=== PATIENT | female | born 1960 | race Caucasian/White ===

== ENCOUNTER 2016-10-31 08:43 | Observation (INO) | payer OTHER ==
[~2016-10-31] VITALS: Ht 170.2 cm; Wt 66.3 kg
[~2016-10-31 08:43] MED LIST: ARNI20TI TOPICAL; BIOSIL PO; CLON1 PO; GABA600T PO; IBUP800T23 PO; LACTCAP8 PO; LAMI200T PO; MAGN250T10 PO; TRAZ300T2 PO; VITA500C9 CHEW; VITA50TA PO; VITATAB43 PO; [UNRECOGNIZED DRUG - OTHER]; [UNRECOGNIZED DRUG - OTHER] SL
[2016-10-31] MEDS: LACTATED RINGER'S 1000 ML IV SCH ×2 (09:30→16:33)
[2016-10-31] MEDS ORDERED: MULT1CAP16 PO (09:33)
[2016-10-31] MEDS ORDERED: BIOCTAB PO (09:33)
[2016-10-31 09:43] VITALS: BP 150/75; PULSE 71; RESP 18; TEMP 98; O2SAT 97
[2016-10-31] MEDS ORDERED: INSULIN HUMAN REGULAR 1,000 UNITS/10 ML VIAL SQ PRN (09:45)
[2016-10-31] MEDS: SODIUM CHLORID 0.9% 500 ML IV SCH (09:45)
[2016-10-31] MEDS ORDERED: ceFAZolin 2 GM PREMIX 50 ML IV SCH (09:45)
[2016-10-31] MEDS: CHLORHEXIDINE GLUCONATE 4% SOLN 120 ML BTL TOP SCH ×2 (09:45→10:55)
[2016-10-31] MEDS ORDERED: METOPROLOL TARTRATE 25 MG TAB PO PRN (09:45)
[2016-10-31] MEDS: VANCOMYCIN 1000 MG/NS 250 ML (for <70 kg) IV SCH ×4 (10:58→16:34)
[2016-10-31] MEDS ORDERED: GENTAMICIN SULFATE 80 MG/2 ML VIAL ONE (11:23)
[2016-10-31] MEDS ORDERED: FAMOTIDINE 20 MG/2 ML VIAL ONE (12:16)
[2016-10-31] MEDS ORDERED: ACETAMINOPHEN 1000 MG/100 ML VIAL IV ONE (12:16)
[2016-10-31] MEDS ORDERED: MIDAZOLAM HCL 2 MG/2 ML VIAL ONE ×2 (12:16→15:21)
[2016-10-31] MEDS ORDERED: SODIUM CHLORIDE 0.9% FLUSH 5 ML FLUSH IVF PRN (14:45)
[2016-10-31] MEDS ORDERED: ONDANSETRON HCL 4 MG/2 ML VIAL IVP PRN (14:45)
[2016-10-31] MEDS ORDERED: ACETAMINOPHEN/HYDROcodone 325 MG/10 MG TAB PO PRN (14:45)
[2016-10-31] MEDS ORDERED: diphenhydrAMINE HCL 25 MG CAP PO PRN (14:45)
[2016-10-31] MEDS ORDERED: MORPHINE SULFATE 4 MG/ML INJ IV PUSH PRN (14:45)
[2016-10-31] MEDS ORDERED: LACTOBACILLUS ACIDOPHILUS TAB PO PRN (14:45)
--- NOTE | 2016-10-31 14:47 | PD.OP ---
cc: Ash Perez MD Operative Report Date of Surgery: Oct 31, 2016 Preoperative Diagnosis: displaced right proximal humerus fracture Postoperative Diagnosis: Procedure: Open reduction internal fixation right proximal humerus Anesthesia: Gen. Surgeon: Ash Perez Waiter/Waitress Buffet(s): Reynaldo Norman PA-C The surgical procedure was assisted by my physician costumer assistant. My P.A. presence was necessary throughout this case for the manipulation and positioning of the surgical extremity. My P.A. was assisting me throughout the duration of this procedure. The skill set of a physician costumer assistant was medically necessary to complete this procedure. During the surgical case the rn medical surgical was working at the back table and the physician costumer assistant was directly assisting me. Operation and Findings: Patient was seen and evaluated preoperatively. Patient was found to have a displaced proximal humerus fracture. She initially declined surgical intervention and wished to proceed with nonoperative treatment. At her 2 week for clinical follow-up appointment, patient changed her mind and wish to proceed with surgical intervention. The risks and benefits of surgical and nonsurgical options were discussed in detail and informed consent was obtained for surgery. Patient was brought to the operating room and placed on or table. IV sedation and GETA were administered by anesthesiologist. Antibiotics were given prior to incision. Operative arm and shoulder were prepped with alcohol followed by Hibiclens and draped usual sterile fashion. Timeout procedure was performed. Procedure began with a 5 inch incision over the anterior shoulder. Cephalic vein was identified. A deltopectoral approach was utilized. The fracture was now visualized. Soft tissue was retracted. A #5 FiberWire suture was placed into the rotator rotator cuff and greater tuberosity. Attention was now turned to reduction. Gentle traction was applied. The humeral shaft was reduced to the humeral head. Fracture was manipulated to achieve excellent reduction. Multiplanar fluoroscopy confirmed well aligned fracture. Multiple K wires were used to hold provisional fixation. A Synthes proximal humerus plate was selected. Plate was provisionally held in place K wires. 3.5 cortical screws were used to compress plate to bone. Fluoroscopy confirmed appropriate plate placement and fracture reduction. Multiple locking screws were now placed in the humeral head. Screws were predrilled and premeasured for appropriate length. Care was taken not to penetrate the articular surface. Additional screws were placed in the humeral shaft. The FiberWire suture was passed through the holes of the plate and sutured to the plate for additional stability. Final fluoroscopy revealed well aligned fracture with well-placed hardware. Wound was thoroughly irrigated. Fascia was closed with #1 Vicryl, subcutaneous tissues closed with 3-0 Vicryl, and skin was closed with miguel. Sterile dressings were applied. Patient was placed into a sling. Patient was awakened and transferred to recovery in stable condition. Needle and sponge counts were correct. Ash Perez MD Oct 31, 2016 14:47
[2016-10-31] MEDS ORDERED: NEOSTIGMINE 3 MG/3 ML SYR IV ONE (14:53)
[2016-10-31] MEDS ORDERED: ePHEDrine/NS 25 MG/5 ML SYR IV ONE (14:53)
[2016-10-31] MEDS ORDERED: PROPOFOL 200 MG/20 ML AMP IV ONE (14:53)
[2016-10-31] MEDS ORDERED: ONDANSETRON HCL 4 MG/2 ML VIAL IV PUSH ONE (14:54)
[2016-10-31] MEDS ORDERED: LACTATED RINGER'S 1000 ML INJ 1,000 ML IV ONE (14:54)
[2016-10-31] MEDS ORDERED: DO NOT ADM ANY ANTICOAGULANT DRUGS XX PRN ×2 (15:14→16:00)
[2016-10-31] MEDS ORDERED: *MEPERIDINE 25 MG INJ VIAL PERIprocedural Use ONLY ONE (15:17)
[2016-10-31] MEDS ORDERED: *morphine SULFATE 8 MG/ML PERIprocedure ONLY ONE ×3 (15:20→15:36)
[2016-10-31] MEDS ORDERED: fentaNYL CITRATE 250 MCG/5 ML AMP ONE (15:21)
[2016-10-31] MEDS ORDERED: MORPHINE SULFATE 4 MG/ML INJ ONE (15:21)
[2016-10-31] MEDS ORDERED: *HYDROmorphone PF 1 MG VIAL PERIprocedural Use ONLY ONE (15:47)
[2016-10-31] MEDS ORDERED: DIMETHICONE/OXYBENZONE/PADMIATE LIP BALM 4.25 GM ONE (16:06)
--- NOTE | 2016-10-31 16:09 | RADRPT ---
EXAM DATE/TIME: 10/31/2016 14:30 [facility] COMPARISON: No previous studies available for comparison. INDICATIONS : ORIF right proximal humerus. MEDICAL HISTORY : None. SURGICAL HISTORY : None. ENCOUNTER: Initial ACUITY: 1 day PAIN SCORE: Non-responsive. LOCATION: Right proximal humerus. FINDINGS: Multiple coned down views of the right shoulder were obtained intraoperatively using a matrix camera and demonstrate a screw plate fixation device transfixing the proximal humeral fracture. The fracture fragments are in near-anatomic alignment. There is a normal glenohumeral relationship. CONCLUSION: Status post open rigid internal fixation. Nando Tsai MD on October 31, 2016 at 16:07 Board Certified Radiologist. This report was verified electronically.
[2016-10-31] MEDS: GABAPENTIN 300 MG CAP PO SCH (17:00)
[2016-10-31] MEDS: clonazePAM 1 MG TAB PO SCH (17:00)
--- NOTE | 2016-10-31 17:36 | EKG ---
Date Performed: 10/31/2016 Time Performed: 09:29:42 PTAGE: 56 years EKG: Sinus rhythm NORMAL ECG NO PREVIOUS TRACING DOCTOR: Tomas Toro Interpretating Date/Time 10/31/2016 17:35:23
[2016-10-31] MEDS: KETOROLAC TROMETHAMINE 30 MG/ML (IVP) VIAL IV PUSH SCH (17:37)
[2016-10-31] MEDS ORDERED: ASCORBIC ACID 500 MG TAB PO SCH (18:00)
[2016-10-31] MEDS ORDERED: CALCIUM/VITAMIN D 250 MG/125 U TAB PO SCH (18:00)
[2016-10-31] MEDS ORDERED: lamoTRIgine 100 MG TAB PO SCH (21:00)
[2016-10-31] MEDS ORDERED: MAGNESIUM OXIDE 400 MG TAB PO SCH (21:00)
[2016-10-31] MEDS ORDERED: traZODone HCL 100 MG TAB PO SCH (21:00)
[2016-10-31] MEDS ORDERED: SODIUM CHLORIDE 0.9% FLUSH 5 ML FLUSH IVF SCH (21:00)
[2016-10-31] MEDS ORDERED: DOCUSATE SODIUM 50 MG/SENNA 8.6 MG TAB PO SCH (21:00)
[2016-10-31] MEDS ORDERED: LORazepam 2 MG/ML VIAL ONE (22:23)
[2016-10-31] MEDS: ceFAZolin 2 GM PREMIX 50 ML IV SCH (23:00)
[2016-11-01] VITALS: BP_SYST 123; BP_SYST 142; BP_DIAS 67; BP_DIAS 71; PULSE 63; PULSE 70; RESP 20; TEMP 97.1; TEMP 97.9; O2SAT 95; O2SAT 98
[2016-11-01] MEDS: SODIUM CHLORID 0.9% 500 ML IV SCH (01:29)
[2016-11-01 04:00] VITALS: BP 100/52; PULSE 71; RESP 20; TEMP 98.4; O2SAT 96
[2016-11-01] MEDS: ceFAZolin 2 GM PREMIX 50 ML IV SCH (05:12)
[2016-11-01] MEDS: KETOROLAC TROMETHAMINE 30 MG/ML (IVP) VIAL IV PUSH SCH ×2 (05:12)
--- NOTE | 2016-11-01 07:06 | PD.ORT.PN ---
Subjective Subjective Remarks s/p ORIF right proximal humerus states she has had pain overnight. overall has been doing well. reports has refused to take Craig because she has "never heard of it". Objective Vitals Vital Signs Date Time Temp Pulse Resp B/P Pulse Ox O2 Delivery O2 Flow Rate FiO2 11/01/16 00:00 97.9 63 20 142/71 95 10/31/16 20:00 15 10/31/16 19:00 62 16 105/60 93 Room Air 10/31/16 18:00 68 16 103/70 93 Room Air 10/31/16 17:00 72 16 103/70 93 Room Air 10/31/16 16:30 82 16 117/64 93 Room Air 10/31/16 16:00 86 16 111/64 94 Room Air 10/31/16 15:45 86 16 121/71 94 Room Air 10/31/16 15:30 86 16 130/84 95 Room Air 10/31/16 15:15 88 16 144/86 95 Room Air 10/31/16 15:10 97.4 94 16 166/100 95 10/31/16 09:43 98.0 71 18 150/75 97 I/O 10/31/16 10/31/16 10/31/16 11/01/16 11/01/16 11/01/16 07:00 15:00 23:00 07:00 15:00 23:00 Intake Total 100 ml Balance 100 ml Intake IV Total 100 ml Objective Remarks RUE: dressing clean and dry. slight bloody drainage of proximal incision. + sling. NVI Assessment & Plan Assessment and Plan 1) Right Proximal Humerus fx s/p ORIF - POD 1 -NWB -dressing change before discharge today -maintain sling at all times -patient removed IV herself at bedside today -informed patient that do not want her driving so in order to get home needs a taxi pass. CM to arrange. -f/u with Alon or NOEL in 2 weeks -DC home today Reynaldo Norman Nov 01, 2016 07:06
[2016-11-01] MEDS ORDERED: PERC5TAB12 PO (07:09)
--- NOTE | 2016-11-01 07:11 | HHI.FF ---
Face to Face Verification Diagnosis: (1) Proximal humerus fracture Occupational Therapy Right UE Weight Bearing: Non WB Right UE Range of Motion: Pendular Nursing Nursing: Dressing changes Dressing Changes: Daily dressing change, Kendall wrap, 4x4s, Xeroform I have seen patient Danni French on 11/01/16. My clinical findings support the need for the requested home health care services because: Ltd mobility - disease progression I certify that my clinical findings support that this patient is homebound because: Post-op weakness Reynaldo Norman Nov 01, 2016 07:11
--- NOTE | 2016-11-01 07:16 | HHI.DS ---
Discharge Summary Admission Date Oct 31, 2016 at 14:43 Discharge Date: Nov 01, 2016 Admitting Diagnosis Right Proximal Humerus Fx Diagnosis: (1) Proximal humerus fracture Diagnosis: Principal Procedures ORIF Right Proximal Humerus PE at Discharge RUE: dressing clean and dry. slight bloody drainage of proximal incision. + sling. NVI Hospital Course Patient admitted from outpatient setting for open reduction internal fixation of right proximal humerus. The patient was very belligerent and noncompliant with the same day surgery staff. She had multiple instances of noncompliance and cursing at staff. Eventually, she became compliant and decided proceed with surgery. She tolerated surgery well and was admitted to [address] [place] [address]. Her pain was well-controlled. On postoperative day 1 she wanted to leave and go home. She removed her IV out of her hand herself at the bedside. A dressing changes performed on postoperative day 1. She'll remain nonweightbearing maintain her sling all times. She will work on pendulums therapy we'll show her. She'll be discharged home with home healthcare. Case management will arrange a taxi pass for her as she is unable to drive at this time. She'll follow up with Dr. Perez or his PA in 2 weeks Pt Condition on Discharge: Good Discharge Disposition: Discharge Home Discharge Instructions Diet Instructions: As Tolerated, No Restrictions Activities You Can Perform: Non Weight Bearing Activities to Avoid: Strenuous Activity Follow up Referrals: Orthopedics - 2 Weeks @ [facility] with Ash Perez MD New Medications: Oxycodone-Acetaminophen (Percocet) 5-325 mg Tab 1 TAB PO Q4H PRN PAIN #60 Ref 0 TAB Continued Medications: Arnica Topical (Arnica Tincture Topical) 20% Tinc 1 APPLIC TOPICAL DIRECTED bruising #1 Ref 0 BOTTLE Ascorbic Acid (Vitamin C) 500 Mg Chew 500 MG CHEW TID Nutritional Supplement #60 Ref 0 TAB Clonazepam (Klonopin) 1 Mg Tab 1 MG PO TID #90 Ref 0 TAB Cobalamine Combinations (Vitamin X86-Tpqbd Acid) 500-400 Mcg Tab 1 TAB PO DAILY Nutritional Supplement Ref 0 TAB Gabapentin (Gabapentin) 600 Mg Tab 600 MG PO TID #90 Ref 0 TAB Homeopathic Products ([facility]are Arthritis) 1 Tab Tab 1 TAB SL TID Nutritional Supplement Lactobacillus Acidophilus (Probiotic) 1 Cap Cap 2 CAP PO TIDAC PRN diarrhea #180 Ref 0 CAP Lamotrigine (Lamictal) 200 Mg Tab 400 MG PO HS Control Seizures #30 Ref 0 TAB Magnesium Gluconate (Magnesium Gluconate) 250 Mg Tab 400-1200 MG PO HS constipation Ref 0 TAB Multiple Minerals W/ Vitamins (Bone Essentials) 1 Cap 11 CAP PO TID Multiple Vitamins W/ Minerals (Biocel) 1 Tab Tab 1 TAB PO BID Thiamine (Vitamin B-1) 50 Mg Tab PO DAILY Nutritional Supplement Ref 0 TAB Trazodone (Trazodone) 300 Mg Tab 300 MG PO HS Control Depression #30 Ref 0 TAB Discontinued Medications: Ibuprofen (Ibuprofen) 800 Mg Tab 800 MG PO TID Pain Management Ref 0 TAB Reynaldo Norman Nov 01, 2016 07:16
[2016-11-01 08:00] VITALS: BP 107/69; PULSE 68; RESP 16; TEMP 97.9; O2SAT 95
[2016-11-01] MEDS: GABAPENTIN 300 MG CAP PO SCH (08:02)
[2016-11-01] MEDS: clonazePAM 1 MG TAB PO SCH (08:02)
[2016-11-01] MEDS ORDERED: MULTIVITAMINS/MINERALS THERAPEUTIC TAB PO SCH (09:00)
[2016-11-01] MEDS ORDERED: FOLIC ACID 1 MG TAB PO SCH (09:00)
[2016-11-01] MEDS ORDERED: CYANOCOBALAMIN 1,000 MCG TAB PO SCH (09:00)
[2016-11-01] MEDS ORDERED: NON-FORMULARY DRUG (Cobalamine Combinations (Vitamin B12-Folic Acid) 1 TAB) PO SCH (09:00)
== END 2016-11-01 09:27 | disposition home or self-care (01) ==
LOC: HSDC 08:43 → HSDI 14:43 → N06B 11-01 01:19
PROVIDERS: ADMIT Orthopaedic Surgery Orthopaedic Trauma; ATTEND Orthopaedic Surgery Orthopaedic Trauma
DX: S42.201A Unspecified fracture of upper end of right humerus, initial encounter for closed fracture (principal); F17.210 Nicotine dependence, cigarettes, uncomplicated; Z01.810 Encounter for preprocedural cardiovascular examination
CPT/HCPCS: 01630; 23615; 73030; 76000; 93005; C1713; G0378; J0131; J0690; J1170; J1580; J1885; J2060; J2175; J2250; J2270; J2405; J2710; J3010; J3370; J7050; J7120